=== PATIENT | male | born 1935 | race Caucasian/White ===

== ENCOUNTER → 2019-12-30 10:32 | Outpatient (BNVA) | payer OTHER, SELFPAY | PROVIDERS: Family Provider Internal Medicine; PCP Internal Medicine; Visit Provider Urology | DX: R79.89 Other specified abnormal findings of blood chemistry (principal); N30.40 Irradiation cystitis without hematuria; Z85.46 Personal history of malignant neoplasm of prostate | CPT/HCPCS: 81001 ==

== ENCOUNTER → 2021-03-26 10:48 | Outpatient (BNVA) | payer OTHER, SELFPAY | PROVIDERS: Family Provider Internal Medicine; PCP Internal Medicine; Visit Provider Urology | DX: Z85.46 Personal history of malignant neoplasm of prostate (principal); N30.40 Irradiation cystitis without hematuria | CPT/HCPCS: 81003; 84403 ==

== ENCOUNTER → 2021-06-22 08:05 | Outpatient (BNVA) | payer OTHER, SELFPAY | PROVIDERS: Family Provider Internal Medicine; PCP Internal Medicine; Visit Provider Urology | DX: R79.89 Other specified abnormal findings of blood chemistry (principal) | CPT/HCPCS: 84403 ==

== ENCOUNTER → 2021-09-25 10:06 | Outpatient (BNVA) | payer OTHER, SELFPAY | PROVIDERS: Family Provider Internal Medicine; PCP Family Medicine; Visit Provider Urology | DX: R79.89 Other specified abnormal findings of blood chemistry (principal) | CPT/HCPCS: 84403 ==

== ENCOUNTER 2022-03-01 10:15 | Emergency (ER) | payer OTHER, MEDICARE, SELFPAY ==
[2022-03-01 10:52] VITALS: BP 170/90; PULSE 62; RESP 16; TEMP 36.8; O2SAT 94; BMI 32.3
--- NOTE | 2022-03-01 11:22 | ED_ITS ---
HPI - General Adult General: Chief complaint: General Medical Stated complaint: was given too much medicine Time Seen by Provider: 03/01/22 10:18 Source: patient Mode of arrival: ambulatory History of Present Illness: 87-year-old male who presents emergency room he is concerned about having been given too much of his testosterone. He receives testosterone injections at home evidently the injection volume doses was triple what it normally is. He usually gets an injection once every 2 weeks he got an entire vial evidently yesterday. He was in contact with his doctor they advised him to come to the hospital if he had elevated blood pressure. At home he was reporting blood pressures of 206/100 normally he is normotensive is not on any antihypertensives. In the emergency room here today was 170/90 180/78. He otherwise is generally feeling well he has felt a little bit jittery but no other significant abnormal side effects. Onset (ago): minute(s) Relieving factors: none Exacerbating factors: none Associated symptoms: Deny chest pain, confusion, cough, diaphoresis, decreased appetite, dyspnea, fevers/chills, headache(s), malaise, nausea, rash, palpitations, seizures, short of breath, syncope, vomiting or weakness Treatments prior to arrival: none Review of Systems Const: Denies: malaise or diaphoresis ENMT: Denies: throat pain, ear or mastoid pain, nasal discharge or nasal congestion Card: Denies: chest pain, palpitations or syncope Resp: Denies: dyspnea GI: Denies: nausea or vomiting : Denies: flank pain, dysuria, urinary frequency or urinary urgency Skin/Breast: Denies: rash Neuro: Denies: headache(s) or confusion [facility] ED PFSH: Medical History Erectile dysfunction Hearing loss Hypothyroidism Osteoarthritis Prostate cancer Sleep apnea Surgical History History of repair of rotator cuff History of right knee surgery S/P placement of cardiac pacemaker S/P tonsillectomy Family History Father CAD (coronary artery disease) age 94 Social History Smoking and tobacco status: never smoked Alcohol intake: never Marital status: / Current occupational status: retired History of recent travel: No Physical Exam Const: COMMON NORMALS: no acute distress GENERAL APPEARANCE: cooperative and comfortable ORIENTATION/CONSCIOUSNESS: Yes awake, Yes oriented to person, Yes oriented to place and Yes oriented to time HENMT: COMMON NORMALS: normocephalic, atraumatic and hearing grossly normal bilaterally HEAD & SCALP: normocephalic and atraumatic Neck/C-Spine: COMMON NORMALS: no JVD Resp: COMMON NORMALS: normal respiratory effort, No retractions, No use of accessory muscles and clear to auscultation bilaterally AUSCULTATION: clear to auscultation bilaterally Cardio: COMMON NORMALS: no JVD, regular rate, regular rhythm and No murmurs present (Cardio) RATE: regular rate RHYTHM: regular rhythm GI: COMMON NORMALS: Soft to palpation and No hepatosplenomegaly present AUSCULTATION: Yes normoactive bowel sounds PALPATION: Yes Soft to palpation, No Tenderness to palpation present (GI), No Guarding due to palpation present (GI) and Yes No hepatosplenomegaly present Extremity: COMMON NORMALS: normal to inspection, capillary refill normal, no clubbing, cyanosis or edema, no calf tenderness and no pedal edema Neuro: SENSORIUM/ORIENTATION: Yes oriented to person, Yes oriented to place and Yes oriented to time Psych: COMMON NORMALS: mental status grossly normal MOOD & AFFECT: No anxious Skin: COMMON NORMALS: no rashes or lesions noted GENERAL SKIN EXAM: no rashes or lesions noted Course Vital Signs: Vital signs: Vital Signs Temperature 98.3 F 03/01/22 10:52 Pulse Rate 64 03/01/22 11:47 Respiratory Rate 16 03/01/22 11:47 Blood Pressure 180/78 03/01/22 11:47 Pulse Oximetry 96 03/01/22 11:47 [facility] - General Adult Medical Decision Making Reviewed up-to-date also reviewed [employer] websites. No significant data on acute one-time overdoses of testosterone. Physiologically the concern would be for elevated blood pressure irritability anxiousness and sleeplessness. At this point his blood pressure is high enough things worthwhile to put him on the 5 mg of amlodipine daily I did advise him this is probably not can be a long-term medication he may only need to take this for a week or 2 till his blood pressure normalizes again. Also discussed with him that with this significantly elevated dose he may have some irritability and difficulty with sleep. Gave him some Ativan to use as needed if this is the case did warn him that this could make him very tired. Also advised him that he should not have another dose of testosterone until he has had a level checked and probably should have that done in about 3 to 4 weeks and then follow-up with Dr. Gates's office as to when the next appropriate time would be. Also made contact with Dr. Gates's midlevel and reviewed with her. So that they can arrange for appropriate follow-up and are aware of the increased dose. Medical Records I reviewed the patient's medical records. Lab Data I reviewed the patient's lab results. Discharge Plan Discharge Patient Disposition: Home Clinical Impression: Accidental testosterone overdose Condition: Stable Prescriptions: New Ativan 2 mg tablet 2 mg sublingual TID PRN (Reason: agitation) Qty: 15 0RF amlodipine 5 mg tablet 5 mg PO DAILY Qty: 20 0RF No Action Ultra CoQ10 75 mg capsule 75 mg PO DAILY 0RF testosterone cypionate 200 mg/mL oil 75 mg IM .EVERY OTHER WEEK Qty: 10 5RF latanoprost 0.005 % Drops 1 drp OPHTHALMIC (EYE) QPM 0RF levothyroxine 125 mcg Tablet 125 mcg PO DAILY 0RF Simbrinza 1-0.2 % drops,suspension 1 drp ophthalmic (eye) BID 0RF Discharge Orders: Discharge ED (Routine); Ordered 03/01/22 Ordered By: Luke Hernandez Referrals: Lianna Wood MD [Primary Care Provider] - Discharge Diet: Usual diet Discharge Activity: Resume usual activity Patient Instructions: Opioid Safety Activity Restrictions/Additional Instructions: Follow-up with your primary care doctor to reevaluate a testosterone level in 3 to 4 weeks. Follow-up within the week with your primary care to reevaluate your blood pressure on the amlodipine. Use the Ativan for any agitation or difficulty sleeping. You should have a testosterone level rechecked before receiving the next dose. Coding Level of Care Code ED Interactive Web Developer for Ricardo Mendez
[2022-03-01 11:47] VITALS: BP 180/78; PULSE 64; RESP 16; O2SAT 96
== END 2022-03-01 11:48 | disposition home or self-care (01) ==
PROVIDERS: Emergency Provider Family Medicine; PCP Family Medicine
DX: T38.7X1A Poisoning by androgens and anabolic congeners, accidental (unintentional), initial encounter (principal); I15.8 Other secondary hypertension
CPT/HCPCS: 99284

== ENCOUNTER 2022-03-28 14:55 | Outpatient (CLI) | payer OTHER, MEDICARE, SELFPAY ==
[2022-03-28 17:49] LABS: Testosterone Total - Urology 93 ng/mL (300-1000)
== END 2022-03-28 14:56 | disposition home or self-care (01) ==
LOC: LAB 15:11
PROVIDERS: PCP Family Medicine; Visit Provider Urology
DX: R79.89 Other specified abnormal findings of blood chemistry (principal)
CPT/HCPCS: 36415; 84403

== ENCOUNTER → 2022-04-01 12:34 | Outpatient (BNVA) | payer OTHER, MEDICARE, SELFPAY | PROVIDERS: PCP Family Medicine; Visit Provider Urology | DX: Z08 Encounter for follow-up examination after completed treatment for malignant neoplasm (principal); Z85.46 Personal history of malignant neoplasm of prostate | CPT/HCPCS: 99213 ==

== ENCOUNTER → 2024-09-06 09:10 | Outpatient (BNVA) | payer MEDICARE, OTHER, SELFPAY | PROVIDERS: PCP Family Medicine; Visit Provider Thoracic Surgery (Cardiothoracic Vascular Surgery) | DX: I96 Gangrene, not elsewhere classified (principal); T81.31XD Disruption of external operation (surgical) wound, not elsewhere classified, subsequent encounter; Y83.8 Other surgical procedures as the cause of abnormal reaction of the patient, or of later complication, without mention of misadventure at the time of the procedure | CPT/HCPCS: 11042; 99203; A6210; A6212 ==

== ENCOUNTER → 2024-09-13 11:13 | Outpatient (BNVA) | payer MEDICARE, OTHER, SELFPAY | PROVIDERS: PCP Family Medicine; Visit Provider Thoracic Surgery (Cardiothoracic Vascular Surgery) | DX: I96 Gangrene, not elsewhere classified (principal); T81.31XD Disruption of external operation (surgical) wound, not elsewhere classified, subsequent encounter; Y83.8 Other surgical procedures as the cause of abnormal reaction of the patient, or of later complication, without mention of misadventure at the time of the procedure | CPT/HCPCS: 97597; A6212 ==

== ENCOUNTER → 2024-09-20 10:12 | Outpatient (BNVA) | payer MEDICARE, OTHER, SELFPAY | PROVIDERS: PCP Family Medicine; Visit Provider Thoracic Surgery (Cardiothoracic Vascular Surgery) | DX: T81.31XD Disruption of external operation (surgical) wound, not elsewhere classified, subsequent encounter (principal); Y83.8 Other surgical procedures as the cause of abnormal reaction of the patient, or of later complication, without mention of misadventure at the time of the procedure | CPT/HCPCS: 99212; A6212 ==